=== PATIENT | female | born 1990 | race American Indian/Alaskan Native ===

== ENCOUNTER 2018-12-31 16:42 | Emergency (ER) | payer MEDICAID ==
--- NOTE | 2018-12-31 16:49 | Emergency Department Report ---
Blank Doc - Documentation Documentation: This is a 28-year-old female that presents with acute nosebleed. Denies any h eadache. This initial assessment/diagnostic orders/clinical plan/treatment(s) is/are subject to change based on patient's health status, clinical progression and re- assessment by fellow clinical providers in the ED. Further treatment and workup at subsequent clinical providers discretion. Patient/guardians urged not to elope from the ED as their condition may be serious if not clinically assessed and managed. Initial orders include: 1- Patient sent to MAIN ED for further evaluation and treatment
[2018-12-31] MEDS ORDERED: NORMODYNE IV ONE (17:01)
[2018-12-31] MEDS ORDERED: VICKS SINEX NS ONE (17:01)
[2018-12-31 17:42] LABS: Hematocrit 37.4 % (30.3-42.9); Hemoglobin 12.8 gm/dl (10.1-14.3); Lymphocytes # (Auto) 1.3 K/mm3 (1.2-5.4); Lymphocytes % (Auto) 29.7 % (13.4-35.0); Mean Corpuscular HGB Conc 34 % (30-34); Monocytes # (Auto) 0.5 K/mm3 (0.0-0.8); Platelet Count 256 K/mm3 (140-440); Red Blood Count 3.32 M/mm3 (3.65-5.03); Red Cell Distribution Width 13.8 % (13.2-15.2)
[2018-12-31 17:43] LABS: Mean Corpuscular Volume 113 fl (79-97)
[2018-12-31 17:54] LABS: INR 1.09 (0.87-1.13)
--- NOTE | 2018-12-31 19:34 | Emergency Department Report ---
HPI - General Chief Complaint: Nosebleed Time Seen by Provider: 12/31/18 16:47 - HPI HPI: 28-year-old -[place] female presents to the emergency department with a complaint of a nosebleed that started last night and has been intermittent but worsened just prior to presentation. She says that she is bleeding from the right nostril/nasal passage. She denies any nasal trauma, using any type of illicit drugs in which she would've snorted something. She denies any past medical history. She denies any tobacco or illicit drug use. She has not taken anything for her symptoms prior to presentation. A few different instances, she says that there was a moderate amount of blood and clots coming out. ED Past Medical Hx - Past Medical History Previous Medical History?: Yes Hx Hypertension: Yes Additional medical history: IUD - Surgical History Past Surgical History?: No - Social History Smoking Status: Never Smoker Substance Use Type: Alcohol - Medications Home Medications: Home Medications Medication Instructions Recorded Confirmed Last Taken Type No Known Home Medications [No 12/31/18 12/31/18 Unknown History Reported Home Medications] ED Review of Systems ROS: Stated complaint: NOSE BLEED Other details as noted in HPI Comment: All other systems reviewed and negative Constitutional: denies: chills, fever Eyes: denies: eye pain, vision change ENT: epistaxis. denies: ear pain, throat pain Respiratory: denies: cough, shortness of breath Gastrointestinal: denies: nausea, vomiting Skin: denies: rash, lesions Neurological: denies: headache Hematological/Lymphatic: easy bleeding (epistaxis). denies: easy bruising Physical Exam - Physical Exam Vital Signs: Vital Signs 12/31/18 12/31/18 12/31/18 16:49 17:30 18:00 Temperature Pulse Rate 98 H 94 H 85 Respiratory 16 15 16 Rate Blood Pressure Blood Pressure 180/121 155/106 147/100 [Right] O2 Sat by Pulse 99 100 99 Oximetry 12/31/18 12/31/18 18:29 18:34 Temperature 98 F Pulse Rate 84 94 H Respiratory 16 15 Rate Blood Pressure 152/99 Blood Pressure 161/100 [Right] O2 Sat by Pulse 100 100 Oximetry Physical Exam: GENERAL: The patient is well-developed well-nourished. HENT: Normocephalic. Atraumatic. Patient has moist mucous membranes. Oropharynx is clear. There is a small amount of blood seen in the right nasal passage. EYES: Extraocular motions are intact. Pupils equal reactive to light bilaterally. NECK: Supple. Trachea is midline. CHEST/LUNGS: Clear to auscultation. There is no respiratory distress noted. HEART/CARDIOVASCULAR: Regular. There is no tachycardia. There is no murmur. ABDOMEN: There is no abdominal distention. SKIN: Skin is warm and dry. NEURO: The patient is awake, alert, and oriented. The patient is cooperative. The patient has no focal neurologic deficits. The patient has normal speech. MUSCULOSKELETAL: There is no tenderness or deformity. There is no evidence of acute injury. ED Course Vital Signs 12/31/18 12/31/18 12/31/18 16:49 17:30 18:00 Temperature Pulse Rate 98 H 94 H 85 Respiratory 16 15 16 Rate Blood Pressure Blood Pressure 180/121 155/106 147/100 [Right] O2 Sat by Pulse 99 100 99 Oximetry 12/31/18 12/31/18 18:29 18:34 Temperature 98 F Pulse Rate 84 94 H Respiratory 16 15 Rate Blood Pressure 152/99 Blood Pressure 161/100 [Right] O2 Sat by Pulse 100 100 Oximetry ED Medical Decision Making - Lab Data Result diagrams: 12/31/18 17:26 - Medical Decision Making This patient presents to the emergency department with a complaint of nosebleeds. There is a small amount of blood seen in the right nasal passage. There is no current hemorrhage. The patient first came to the emergency department she had a pretty elevated blood pressure that may be partly to blame for the patient denies any history of hypertension but is present with some elevated blood pressure. With her initial blood pressure, it may exacerbate the epistaxis. Originally I was putting in for a dose of labetalol but her blood pressure came down to a more reasonable level. The patient has held pressure with her head level for 20 minutes straight. She was given a dose of aspirin. She was reevaluated multiple times and there has been no return of her epistaxis and I do not feel that we needed to pack the nasal passage at this time. We discussed dietary and lifestyle changes to make for her blood pressure. We discussed how to hold pressure if necessary for any return of her epistaxis. She was given a referral for otolaryngology. She will return to the ER with any worsening of her symptoms or any acute distress. Critical Care Time: No Critical care attestation.: If time is entered above; I have spent that time in minutes in the direct care of this critically ill patient, excluding procedure time. ED Disposition Clinical Impression: Epistaxis Disposition: DC-01 TO HOME OR SELFCARE Is pt being admited?: No Condition: Stable Instructions: Epistaxis (ED) Additional Instructions: Please follow up with a primary care physician in the next few days. I have also given you a referral for a local ear nose throat physician, Dr. Jose Whittington. Return to the emergency Department with any worsening of your symptoms or any acute distress. If you start to have another nosebleed, make sure that you will hold pressure for 20 minutes with her head level. If you continue to have bleeding after that, he will need to return to the emergency department. Try and stay away from foods that are high in salt, caffeinated products to help with her blood pressure. Daily blood pressure log. Referrals: HARJINDER MADDEN MD [Staff Physician] - 3-5 Days AMANDA DAWN DO [Staff Physician] - 3-[address] [facility] [Outside] - 3-5 Days Time of Disposition: 19:36
[2018-12-31 21:01] VITALS: BP 149/91
== END 2018-12-31 21:01 | disposition home or self-care (01) ==
LOC: ED 16:42
DX: R04.0 Epistaxis (principal); I10 Essential (primary) hypertension
CPT/HCPCS: 36415; 85025; 85610; 85730; 99283

== ENCOUNTER 2019-01-01 23:31 | Emergency (ER) | payer MEDICAID ==
[2019-01-02] MEDS ORDERED: VICKS SINEX NS ONE
--- NOTE | 2019-01-02 | Emergency Department Report ---
ED ENT HPI - General Chief complaint: Nosebleed Stated complaint: NOSE BLEED Time Seen by Provider: 01/01/19 23:56 Source: patient Mode of arrival: Ambulatory Limitations: No Limitations - History of Present Illness Initial comments: Skyla is a 28-year-old female who presents with right-sided nosebleed since Friday. This is her third ER visit. No trauma to the nose. No URI symptoms. No seasonal allergies. sHe denies pain. Does not take any medications. She does not take aspirin or ibuprofen. MD complaint: epistaxis -: Sudden, days(s) (4) Location: nose (right nose) Severity: mild Consistency: intermittent Improves with: cold therapy Context-Epistaxis: history of similar (first time this week 3 different episodes. ED visits) - Related Data Home Medications Medication Instructions Recorded Confirmed Last Taken No Known Home Medications [No 12/31/18 12/31/18 Unknown Reported Home Medications] Allergies Allergy/AdvReac Type Severity Reaction Status Date / Time No Known Allergies Allergy Verified 10/31/13 03:23 ED Dental HPI - General Chief complaint: Nosebleed Stated complaint: NOSE BLEED Time Seen by Provider: 01/01/19 23:56 Source: patient Mode of arrival: Ambulatory Limitations: No Limitations - Related Data Home Medications Medication Instructions Recorded Confirmed Last Taken No Known Home Medications [No 12/31/18 12/31/18 Unknown Reported Home Medications] Allergies Allergy/AdvReac Type Severity Reaction Status Date / Time No Known Allergies Allergy Verified 10/31/13 03:23 ED Review of Systems ROS: Stated complaint: NOSE BLEED Other details as noted in HPI Constitutional: denies: fever, malaise Respiratory: denies: cough, shortness of breath Hematological/Lymphatic: denies: easy bleeding ED Past Medical Hx - Past Medical History Previous Medical History?: Yes Hx Hypertension: Yes Additional medical history: IUD - Surgical History Past Surgical History?: No - Social History Smoking Status: Never Smoker Substance Use Type: None - Medications Home Medications: Home Medications Medication Instructions Recorded Confirmed Last Taken Type No Known Home Medications [No 12/31/18 12/31/18 Unknown History Reported Home Medications] ED Physical Exam - General Limitations: No Limitations General appearance: alert, in no apparent distress - Head Head exam: Present: atraumatic, normocephalic - ENT ENT exam: Present: other (small amount of blood in the right nostril no active bleeding) - Neck Neck exam: Present: normal inspection, full ROM - Neurological Exam Neurological exam: Present: alert, oriented X3 - Psychiatric Psychiatric exam: Present: normal affect, normal mood - Skin Skin exam: Present: warm, dry, intact, normal color ED Medical Decision Making - Medical Decision Making Skyla presents with mild epistaxis, given Afrin. Given reassurance and education. Referred to ENT. Critical care attestation.: If time is entered above; I have spent that time in minutes in the direct care of this critically ill patient, excluding procedure time. ED Disposition Clinical Impression: Epistaxis Disposition: DC- TO HOME OR SELFCARE Is pt being admited?: No Does the pt Need Aspirin: No Condition: Stable Instructions: Epistaxis (ED) Referrals: VIOLETA TENORIO MD [Staff Physician] - 3-5 Days FREE,LANCE Curtis MD [Staff Physician] - 3-5 Days HARJINDER MADDEN MD [Staff Physician] - 3-5 Days Forms: Work/School Release Form(ED)
[2019-01-02 00:21] VITALS: BP 180/100
== END 2019-01-02 00:23 | disposition home or self-care (01) ==
LOC: ED 23:31
DX: R04.0 Epistaxis (principal); I10 Essential (primary) hypertension

== ENCOUNTER 2019-01-02 02:21 | Emergency (ER) | payer MEDICAID ==
[2019-01-02] MEDS ORDERED: ULTRAM PO ONE (02:42)
[2019-01-02] MEDS ORDERED: KEFLEX PO ONE (02:43)
[2019-01-02] MEDS ORDERED: VICKS SINEX NS ONE (02:43)
[2019-01-02] MEDS ORDERED: NORCO 5/325 PO ONE (03:30)
--- NOTE | 2019-01-02 03:36 | Emergency Department Report ---
ED ENT HPI - General Chief complaint: Nosebleed Stated complaint: NOSE BLEED Time Seen by Provider: 01/02/19 02:35 Source: patient, EMS Mode of arrival: Ambulatory Limitations: No Limitations - History of Present Illness Initial comments: Patient is a 28-year-old female who's had a nosebleed off and on for approximately one week. Patient is been to the emergency department several times but when she gets here to her nose. Bleeding initially restart. Patient was brought in tonight secondary to pouring blood from most of the right nostril. Patient has had several elevated blood pressures but is not on any blood pressure medications since the patient left AMA numerous times from the emergency Department. Patient denies any trauma to the nose. States she has a minimal headache. Patient's states that she has some blurry vision from the left eye earlier today during nosebleed which is now resolved. - Related Data Previous Rx's Medication Instructions Recorded Last Taken Type Amlodipine Besylate [Norvasc] 5 mg PO DAILY #30 tablet 01/02/19 Unknown Rx HYDROcodone/APAP 5-325 [Okarche 1 each PO Q6HR PRN #14 tablet 01/02/19 Unknown Rx 5/325] cephALEXin [Keflex] 500 mg PO Q12HR #10 cap 01/02/19 Unknown Rx Allergies Allergy/AdvReac Type Severity Reaction Status Date / Time No Known Allergies Allergy Verified 10/31/13 03:23 ED Dental HPI - General Chief complaint: Nosebleed Stated complaint: NOSE BLEED Time Seen by Provider: 01/02/19 02:35 Source: patient, EMS Mode of arrival: Ambulatory Limitations: No Limitations - Related Data Previous Rx's Medication Instructions Recorded Last Taken Type Amlodipine Besylate [Norvasc] 5 mg PO DAILY #30 tablet 01/02/19 Unknown Rx HYDROcodone/APAP 5-325 [Okarche 1 each PO Q6HR PRN #14 tablet 01/02/19 Unknown Rx 5/325] cephALEXin [Keflex] 500 mg PO Q12HR #10 cap 01/02/19 Unknown Rx Allergies Allergy/AdvReac Type Severity Reaction Status Date / Time No Known Allergies Allergy Verified 10/31/13 03:23 ED Review of Systems ROS: Stated complaint: NOSE BLEED Other details as noted in HPI Comment: All other systems reviewed and negative ED Past Medical Hx - Past Medical History Previous Medical History?: No Hx Hypertension: Yes Additional medical history: IUD - Surgical History Past Surgical History?: No - Social History Smoking Status: Former Smoker Substance Use Type: None - Medications Home Medications: Home Medications Medication Instructions Recorded Confirmed Last Taken Type Amlodipine Besylate [Norvasc] 5 mg PO DAILY #30 tablet 01/02/19 Unknown Rx HYDROcodone/APAP 5-325 [Okarche 1 each PO Q6HR PRN #14 tablet 01/02/19 Unknown Rx 5/325] cephALEXin [Keflex] 500 mg PO Q12HR #10 cap 01/02/19 Unknown Rx ED Physical Exam - General Limitations: No Limitations General appearance: alert, in no apparent distress - Head Head exam: Present: atraumatic, normocephalic - Eye Eye exam: Present: normal appearance - ENT ENT exam: Present: mucous membranes moist, other (H and with active bleeding from the right nostril. Patient has a large clot of blood in the posterior nose) - Neck Neck exam: Present: normal inspection - Respiratory Respiratory exam: Present: normal lung sounds bilaterally. Absent: respiratory distress, wheezes, rales, rhonchi - Cardiovascular Cardiovascular Exam: Present: regular rate, normal rhythm. Absent: systolic murmur, diastolic murmur, rubs, gallop - GI/Abdominal GI/Abdominal exam: Present: soft, normal bowel sounds. Absent: distended, tenderness, guarding, rebound - Extremities Exam Extremities exam: Present: normal inspection - Back Exam Back exam: Present: normal inspection - Neurological Exam Neurological exam: Present: alert, oriented X3 - Psychiatric Psychiatric exam: Present: normal affect, normal mood - Skin Skin exam: Present: warm, dry, intact, normal color. Absent: rash ED Course Vital Signs 01/02/19 01/02/19 02:31 02:48 Temperature 98 F Pulse Rate 84 Respiratory 16 16 Rate Blood Pressure 150/108 Blood Pressure 150/108 [Left] O2 Sat by Pulse 100 Oximetry ED Medical Decision Making - Medical Decision Making Was able to pass a 5 cm rapid Rhino into the right nostril. Patient bleeding is now being controlled and the patient be discharged home. Critical care attestation.: If time is entered above; I have spent that time in minutes in the direct care of this critically ill patient, excluding procedure time. ED Disposition Clinical Impression: Epistaxis, Hypertensive urgency Disposition: DC-01 TO HOME OR SELFCARE Is pt being admited?: No Does the pt Need Aspirin: No Condition: Stable Instructions: Epistaxis (ED) Additional Instructions: Please see ENT physician or return to the emergency department for pack removal in 2 days Referrals: HARJINDER MADDEN MD [Staff Physician] - 3-5 Days Time of Disposition: 03:37
[2019-01-02 03:55] VITALS: BP 154/89
== END 2019-01-02 03:54 | disposition home or self-care (01) ==
LOC: ED 02:21
DX: R04.0 Epistaxis (principal); I16.0 Hypertensive urgency; I10 Essential (primary) hypertension; Z87.891 Personal history of nicotine dependence